=== PATIENT | female | born 1990 | race Caucasian/White ===

== ENCOUNTER 2024-01-04 19:30 | Inpatient (IN) | payer BC ==
[2024-01-04] MEDS ORDERED: Lidocaine 1% 50 ML MDV INJECT PRN (23:05)
[2024-01-04] MEDS ORDERED: Methylergonovine 0.2 MG/1 ML Amp IM PRN (23:05)
[2024-01-04] MEDS ORDERED: Tranexamic Acid IN NACL,ISO-OS 1,000 MG in Premix Bag 1 BAG IV PRN (23:05)
[2024-01-04] MEDS ORDERED: Carboprost Tromethamine 250 MCG/1 mL Vial IM PRN (23:05)
[2024-01-04] MEDS ORDERED: Sodium Chloride 0.9% 10 ML Syringe FLUSH PRN (23:05)
[2024-01-04] MEDS ORDERED: Sodium Chloride 0.9% 20 ML SDV IV PRN (23:05)
[2024-01-04] MEDS ORDERED: Misoprostol 200 MCG Tab PO PRN (23:05)
[2024-01-04] MEDS ORDERED: Acetaminophen 325 MG Tab PO PRN (23:05)
[2024-01-04] MEDS ORDERED: Terbutaline 1 MG/ML SDV SUBCUT PRN (23:05)
[2024-01-04] MEDS ORDERED: Water For Irrigation,Sterile 1,000 ML Container IRR PRN (23:05)
[2024-01-04] MEDS ORDERED: Sodium Chloride 0.9% 2.5 ML Syringe FLUSH PRN (23:05)
[2024-01-04] MEDS ORDERED: Oxytocin/0.9 % Sodium Chloride 30 UNIT/500 ML BAG IV SCH (23:15)
[2024-01-04] MEDS ORDERED: Measles, Mumps & Rubella Vaccine 0.5 ML SDV SUBCUT ONE (23:16)
[2024-01-04] MEDS ORDERED: Penicillin G Potassium 5 MILLUNITS in Dextrose 5% in Water 100 ML IV ONE (23:16)
[2024-01-04 23:28] LABS: HEMATOCRIT 30.7 % (37.0-47.0); HEMOGLOBIN 9.8 g/dL (12.0-16.0); MEAN CORPUSCULAR HEMOGLOBIN 22.8 pg (28.0-32.0); MEAN CORPUSCULAR HGB CONC 31.9 g/dL (32.0-36.0); MEAN CORPUSCULAR VOLUME 71.6 fL (83.0-99.0); MEAN PLATELET VOLUME 10.7 fL (9.4-12.3); PLATELET COUNT,PLT 280 K/uL (150-400); RED BLOOD CELL COUNT 4.29 M/uL (4.10-5.30); WHITE BLOOD CELL COUNT,WBC 9.62 K/uL (3.9-11.3)
[2024-01-05] MEDS: Lactated Ringers 1,000 ML IV SCH ×2 (00:14→07:22)
[2024-01-05] MEDS: Ampicillin 2 GM in Sodium Chloride 0.9% 100 ML IV ONE (00:14)
[2024-01-05] MEDS: Oxytocin/0.9 % Sodium Chloride 30 UNIT/500 ML BAG IV SCH (00:21)
[2024-01-05] MEDS ORDERED: Penicillin G Potassium 2.5 MILLUNITS in Dextrose 5% in Water 100 ML IV SCH (03:30)
[2024-01-05] MEDS: Butorphanol 2 MG/ML SDV IVPUSH PRN (03:50)
[2024-01-05] MEDS: Ampicillin 1 GM in Sodium Chloride 0.9% 50 ML IV SCH (03:52)
[2024-01-05] MEDS ORDERED: Lanolin 100% Cream 7 GM Tube TOP PRN (05:02)
[2024-01-05] MEDS ORDERED: Methylergonovine 0.2 MG/1 ML Amp IM PRN (05:02)
[2024-01-05] MEDS ORDERED: diphenhydrAMINE 50 MG/ML SDV IVPUSH PRN (05:02)
[2024-01-05] MEDS ORDERED: Oxytocin 10 Units/1 ML SDV IM PRN (05:02)
[2024-01-05] MEDS ORDERED: Ondansetron 4 MG/2 ML SDV IVPUSH PRN ×3 (05:02→06:54)
[2024-01-05] MEDS ORDERED: Sodium Chloride 0.9% 2.5 ML Syringe FLUSH PRN (05:02)
[2024-01-05] MEDS ORDERED: Sodium Chloride 0.9% 20 ML SDV IV PRN (05:02)
[2024-01-05] MEDS ORDERED: Misoprostol 200 MCG Tab RECTAL PRN (05:02)
[2024-01-05] MEDS ORDERED: Sodium Chloride 0.9% 10 ML Syringe FLUSH PRN (05:02)
[2024-01-05] MEDS ORDERED: Bisacodyl 10 MG Supp RECTAL PRN (05:02)
[2024-01-05] MEDS ORDERED: Oxytocin 10 Units/1 ML SDV ONE (05:05)
[2024-01-05] MEDS ORDERED: EPINEPHrine 1 MG/1 ML Amp ONE (05:05)
[2024-01-05] MEDS ORDERED: ceFAZolin 1 GM Vial ONE (05:05)
[2024-01-05] MEDS ORDERED: fentaNYL 100 MCG/2 ML SDV ONE (05:05)
[2024-01-05] MEDS ORDERED: Ondansetron 4 MG/2 ML SDV ONE (05:05)
[2024-01-05] MEDS ORDERED: Ketorolac 30 MG/ML SDV ONE (05:05)
[2024-01-05] MEDS ORDERED: Morphine PF 10 MG/10 ML SDV ONE (05:05)
[2024-01-05] MEDS ORDERED: Bupivacaine 0.25% 30 ML SDV ONE (05:05)
[2024-01-05] MEDS ORDERED: Ropivacaine 0.5% 5 MG/ML 30 ML SDV ONE (05:05)
[2024-01-05] MEDS ORDERED: Lactated Ringers 1,000 ML IV SCH (05:15)
[2024-01-05] MEDS ORDERED: Oxytocin/0.9 % Sodium Chloride 30 UNIT/500 ML BAG IV SCH (05:15)
[2024-01-05] MEDS ORDERED: Phenylephrine HCl In 0.9% NaCl 1 MG/10 ML Syringe ONE ×2 (05:26→06:06)
[2024-01-05] MEDS ORDERED: Azithromycin 500 MG Vial ONE (05:30)
[2024-01-05] MEDS ORDERED: Tranexamic Acid 1,000 MG/10 ML Vial ONE (05:36)
[2024-01-05] MEDS ORDERED: fentaNYL 100 MCG/2 ML SDV IVPUSH PRN (06:54)
[2024-01-05] MEDS ORDERED: Morphine 2 MG/ML SYRINGE IVPUSH PRN (06:54)
[2024-01-05] MEDS ORDERED: Naloxone 0.4 MG/ML SDV IVPUSH PRN (06:54)
[2024-01-05] MEDS ORDERED: Metoclopramide 10 MG/2 ML SDV IVPUSH PRN (06:54)
[2024-01-05] MEDS ORDERED: droPERidol 5 MG/2 ML SDV IVPUSH PRN (06:54)
[2024-01-05] MEDS ORDERED: Phenylephrine HCl In 0.9% NaCl 1 MG/10 ML Syringe IVPUSH PRN (06:54)
[2024-01-05] MEDS ORDERED: Nalbuphine 10 MG/1 ML Vial IVPUSH PRN (06:54)
[2024-01-05] MEDS ORDERED: HYDROmorphone 1 MG/ML Syringe IVPUSH PRN (06:54)
[2024-01-05] MEDS ORDERED: Acetaminophen/oxyCODONE 325-5 MG Tab PO PRN (06:54)
[2024-01-05] MEDS ORDERED: fentaNYL 50 MCG/ML SDV IVPUSH PRN (06:54)
[2024-01-05] MEDS ORDERED: Albuterol 0.083% 2.5 MG/3 ML Neb Soln NEB PRN (06:54)
[2024-01-05] MEDS ORDERED: ePHEDrine 50 MG/ML SDV IM PRN (06:55)
[2024-01-05 07:17] LABS: PH,UMBILICAL ARTERIAL 7.199 (7.18-7.38); PH,UMBILICAL VENOUS 7.231 (7.25-7.45)
[2024-01-05] MEDS: diphenhydrAMINE 50 MG/ML SDV IVPUSH PRN (09:32)
[2024-01-05] MEDS: Ketorolac 30 MG/ML SDV IVPUSH SCH ×2 (12:53→19:10)
[2024-01-05] MEDS: Ferrous Sulfate 325 MG Tab PO SCH (13:09)
[2024-01-05] MEDS: Acetaminophen 1,000 MG in Premix Bag 1 BAG IV SCH (13:10)
[2024-01-05] MEDS: Docusate Sodium 100 MG Cap PO SCH (13:11)
[2024-01-05] MEDS: Prenatal Multivitamin with Calcium/Folic Acid/Iron Tab PO SCH (13:11)
[2024-01-05] MEDS: ceFAZolin 2 GM in Sodium Chloride 0.9% 50 ML IV ONE (19:50)
[2024-01-05] MEDS: Citric Acid/Sodium Citrate Solution 30 ML Cup PO ONE (19:50)
[2024-01-06 06:08] LABS: HEMATOCRIT 27.8 % (37.0-47.0); HEMOGLOBIN 8.9 g/dL (12.0-16.0); MEAN CORPUSCULAR HEMOGLOBIN 23.1 pg (28.0-32.0); MEAN PLATELET VOLUME 9.9 fL (9.4-12.3); PLATELET COUNT,PLT 267 K/uL (150-400); RED BLOOD CELL COUNT 3.86 M/uL (4.10-5.30); WHITE BLOOD CELL COUNT,WBC 9.27 K/uL (3.9-11.3)
[2024-01-06] MEDS: Ibuprofen 800 MG Tab PO PRN (13:57)
[2024-01-06] MEDS: Acetaminophen/oxyCODONE 325-5 MG Tab PO PRN ×2 (16:49→20:54)
== END 2024-01-07 11:40 | disposition home or self-care (01) | DRG 540 ==
LOC: MW.OB 19:30 → MW.OBCHECK 19:30 → MW.OB 23:05 → OBSVTOIN 01-05 21:19
PROVIDERS: ADMIT Obstetrics & Gynecology; ATTEND Obstetrics & Gynecology
PROC: 10D00Z1 Extraction of Products of Conception, Low, Open Approach (ICD-10-PCS; principal; 2024-01-05 05:25)
DX: O48.0 Post-term pregnancy (principal); O99.824 Streptococcus B carrier state complicating childbirth; O99.02 Anemia complicating childbirth; O76 Abnormality in fetal heart rate and rhythm complicating labor and delivery; D25.2 Subserosal leiomyoma of uterus; O34.13 Maternal care for benign tumor of corpus uteri, third trimester; Z3A.40 40 weeks gestation of pregnancy; Z37.0 Single live birth; Z28.39 Other underimmunization status; Z98.890 Other specified postprocedural states
CPT/HCPCS: 01961; 36415; 59025; 59514; 64488; 82803; 85027; 86592; 86850; 86900; 86901; A9270-GY; J0131; J0171; J0290; J0456; J0595; J0665; J0690; J1100; J1200; J1885; J2274; J2371; J2405; J2590; J2795; J3010; J3490; J7120